=== PATIENT | female | born 1935 | race Caucasian/White ===

== ENCOUNTER → 2016-12-02 | Outpatient (CLI) | payer OTHER ==
[~2016-12-02] MED LIST: ACID CONTROLLER10 MG PO; ADULT LOW DOSE81 MG PO; ALIGN4 MG PO; ASPIRIN EC81 M1; B-100 COMPLEX1 EAC1 PO; CALCITRATE200 MG; CALCIUM CITRAT1 EA16 PO; CARVEDILOL12.5 MG PO; CITRACAL-VIT D1 EACH PO; CO Q-10100 MG PO; COENZYME Q1050 M1 PO; COMBIVENT INH; COQ-10100 MG; DIGESTIVE HEALTH PO; DUONEB 2.5-0.5 M3 ML INH; FOSAMAX 70 MG T70 MG PO; LORAZEPAM 1 MG T1 M1 PO; LORAZEPAM 2MG TA2 M1 PO; MULTI VITAMIN1 EACH PO; MULTIVITAMINS1 EAC7 PO; NEURONTIN 400400 M1 PO; NORVASC 5 MG TAB5 MG PO; OPTIVE EYE DROP30 ML OPHTHALMIC; PROAIR HFA8.5 GM INH; PROBIOTIC1 EAC1; SIMVASTATIN20 MG PO; SYMBICORT160 MCG/4. INH; SYNTHROID88 MCG PO; TIROSINT88 MCG; TRAZODONE 150150 M1; TRAZODONE PO; VITAMIN B COMP1 EACH PO; VITAMIN C + RO500 MG; VITAMINC500 PO; ZOLOFT50 MG PO
== END ==
LOC: RAD 08:49
DX: R06.02 Shortness of breath (principal); K44.9 Diaphragmatic hernia without obstruction or gangrene

== ENCOUNTER 2016-12-13 16:18 | Inpatient (IN) | payer OTHER ==
[~2016-12-13] VITALS: Ht 162.6 cm; Wt 53.5 kg
--- NOTE | ~2016-12-13 | 2DMMODE ---
[facility] [address] [place] [address] 2 D/M-MODE ECHOCARDIOGRAM Name: MALKA MARTINO Room #: 455-P ADM IN M.R.#: [id number] Admission: 12/13/16 Attend Phys: Mayra Solitario MD Discharge: Date of : 37 Date of Service: 12/14/16 1412 Report #: [id number] THIS REPORT FOR: //name// APPROVED REPORT Study performed: 12/14/2016 11:22:19 EXAM: Comprehensive 2D, Doppler, and color-flow Echocardiogram Patient Location: Bedside Room #: [facility] Status: routine Other Information Study Quality: Adequate Indications Dyspnea Hx COPD, HTN, HLP 2D Dimensions RVDd: 37.02 mm LVEF(%): 57.49 (>50%) IVSd: 15.04 (7-11mm) LVOT Diam: 20.09 (18-24mm) LVDd: 36.71 mm PWd: 13.01 (7-11mm) Ascending Ao: 32.33 (22-36mm) LVDs: 25.85 (25-40mm) Aortic Root: 33.35 mm IVC: 1.70 mm Bains's LVEF: 57.49 % Volumes Left Atrial Volume (Systole) Single Plane 4CH: 82.64 mL Single Plane 2CH: 89.13 mL LA ESV Index: 64.00 mL/m2 Aortic Valve AoV Peak Khadar.: 1.62 m/s AO Peak Gr.: 10.50 mmHg LVOT Max P.32 mmHg LVOT Max V: 1.15 m/s BUBBA Vmax: 2.25 cm2 Mitral Valve IVRT: 106.11 ms Pulmonary Valve PV Peak Khadar.: 1.12 m/s PV Peak Gr.: 5.03 mmHg [facility] [place] [address] 2 D/M-MODE ECHOCARDIOGRAM Name: MALKA MARTINOJAMIL Room #: 455- ADM IN M.R.#: [id number] Admission: 12/13/16 Attend Phys: Mayra Solitario MD Discharge: Date of : 37 Date of Service: 12/14/16 1412 Report #: [id number] Tricuspid Valve TR Peak Khadar.: 2.82 m/s RAP Estimate: 5.00 mmHg TR Peak Gr.: 31.87 mmHg PA Pressure: 37.00 mmHg Left Ventricle The left ventricle is normal size. Moderate concentric left ventricular hypertrophy. The left ventricular systolic function is normal. The left ventricular ejection fraction is within the normal range. LVEF is 55-60%. This study is not technically sufficient to allow evaluation of the LV diastolic function. Right Ventricle The right ventricle is normal size. The right ventricular systolic function is normal. Atria Left atrium is dilated. The right atrium size is normal. Aortic Valve Aortic valve is thickened but has adequate excursion. No aortic regurgitation is present. There is no aortic valvular stenosis. Mitral Valve The mitral valve is normal in structure. Trace mitral regurgitation. No evidence of mitral valve stenosis. Tricuspid Valve The tricuspid valve is normal in structure. There is trace tricuspid regurgitation. The right atrial pressure is estimated at 5 mmHg. There is mild pulmonary hypertension with an estimated PAP of 37 mmHg. Pulmonic Valve The pulmonary valve is normal in structure. There is no pulmonic valvular regurgitation. Great Vessels The aortic root is normal in size. The ascending aorta is normal in size. IVC is normal in size and collapses >50% with inspiration. Pericardium There is no pericardial effusion. [facility] [address] [place] [address] 2 D/M-MODE ECHOCARDIOGRAM Name: MALKA MARTINO Room #: 455-[facility] IN .R.#: [id number] Admission: 12/13/16 Attend Phys: Mayra Solitario MD Discharge: Date of : 37 Date of Service: 12/14/16 1412 Report #: [id number] <Conclusion> The left ventricle is normal size. LVEF is 55-60%. Left atrium is dilated. Aortic valve is thickened but has adequate excursion. No aortic regurgitation is present. There is no aortic valvular stenosis. The mitral valve is normal in structure. Trace mitral regurgitation. The tricuspid valve is normal in structure. There is trace tricuspid regurgitation. The right atrial pressure is estimated at 5 mmHg. There is mild pulmonary hypertension with an estimated PAP of 37 mmHg. The pulmonary valve is normal in structure. The aortic root is normal in size. <ELECTRONICALLY SIGNED> By: Jorge Jamison MD 12/14/16 [id number] 11 Jorge Jamison MD /INF
--- NOTE | ~2016-12-13 | S ---
[facility] [place] [address] [place] [address] SURGICAL PATH RPT PROCEDURE Name: MALKA MARTINO Room #: 455-P DIS IN M.R.#: [id number] Admission: 12/13/16 Date of : 37 Discharge: 12/17/16 Report #: [id number] Path Case #: [id number] PATHOLOGY REPORT COLLECTION DATE: 12/16/2016 RECEIVED DATE: 12/16/2016 SUBMITTING PHYS: Dr. Anibal Rodriguez OTHER PHYS: Dr. Jude Solitario SPECIMEN(S) RECEIVED: A.Bx of random colon * * * * * * * * * * * * FINAL DIAGNOSIS: Colon, random biopsies: - Colonic mucosa with mild chronic inflammation in lamina propria. - No specific evidence of lymphocytic or collagenous colitis. (SK:; 12/19/2016) PATHOLOGIST: Dickson Felix M.D. REPORT ELECTRONICALLY SIGNED BY: Dickson Felix M.D. DATE/TIME: 12/19/2016 15:40 * * * * * * * * * * * * GROSS PATHOLOGY: Received in formalin labeled "Malka Martino, biopsy of random colon," are 3 segments of wills soft tissue measuring 0.8 x 0.5 x 0.2 cm in aggregate dimensions and ranging from 0.4 to 0.5 cm in maximum dimension. The specimen is submitted entirely in cassette A1. ([facility]; 12/17/2016) CLINICAL HISTORY: Pre-op dx: Dysphasia, anemia, microscopic colitis Post-op dx: Chronic diarrhea, anemia INITIAL CPT CODE(S): A; 70288 Professional services performed by [facility] at [facility] [address], [place] [address] Technical services performed by [facility] at [address] [place] [address], [address] [address]. [facility] [address] [place] [address] SURGICAL PATH RPT PROCEDURE Name: MALKA MARTINO Room #: 455-P [facility] IN [facility].#: [id number] Admission: 12/13/16 Date of : 37 Discharge: 12/17/16 Report #: [id number] Path Case #: [id number] [facility] [address] [address] PHONE: [phone] DIRECTOR: Crescencio Rudolph M.D. * * * END OF REPORT * * *
[2016-12-13 16:55] VITALS: BP 144/68
[2016-12-13 17:41] LABS: ABSOLUTE NEUTROPHILS 9.5 thou/uL (1.4-8.2); BASOPHILS 0.8 % (0.0-2.0); EOSINOPHILS 3.9 % (0.0-3.0); HEMOGLOBIN 7.3 gm/dL (12.0-15.0); LYMPHOCYTES 17.2 % (24.0-44.0); MCH 23.8 pg (26.0-34.0); MCV 74.6 fL (80.0-100.0); MONOCYTES 10.1 % (1.0-8.0); PLATELET COUNT 366 thou/uL (150-400); RBC 3.08 mil/uL (4.20-5.00); WBC 13.9 thou/uL (4.0-11.0)
[2016-12-13 17:46] LABS: CALCIUM 9.2 mg/dL (8.5-10.1); CREATININE 0.8 mg/dL (0.6-1.0); POTASSIUM 4.4 mmol/L (3.5-5.1)
[2016-12-13 17:48] LABS: ABG SAMPLE TYPE ARTERIAL; BE(vivo) 0.8 mmol/L (-2 to +3); HCO3 24.8 mmol/L (22.0-26.0); LACTATE 0.75 mmol/L (0.5-2.0); O2(CT) 10.4 mL/dL (15.0-23.0); O2Hb 92.7 % (92.0-98.0); PCO2 36.8 mmHg (35.0-45.0); PO2 76.5 mmHg (80.0-100.0); STICK SITE L.BRACHIAL; pH 7.446 (7.360-7.450); sO2 95.9 % (92.0-98.0); tCO2 25.9 mmol/L (24.0-30.0)
[2016-12-13 17:50] LABS: MANUAL DIFF NO
[2016-12-13 17:52] LABS: TOTAL BILIRUBIN 0.2 mg/dL (<0.1-1.0); TOTAL PROTEIN 6.6 g/dL (6.4-8.2)
[2016-12-13 18:16] LABS: % SATURATION 3 % (20-39); IRON 14 ug/dL (50-170); TIBC 404 ug/dL (250-450); UIBC 390 ug/dL
[2016-12-13 19:05] VITALS: BP 147/64
[2016-12-13 20:11] LABS: FOLIC ACID 34.4 ng/mL (8.6-58.9)
[2016-12-14 04:28] VITALS: BP 121/55
[2016-12-14 06:11] LABS: WBC 9.9 thou/uL (4.0-11.0)
[2016-12-14 06:13] LABS: HEMATOCRIT 21.3 % (37.0-47.0); MCH 24.3 pg (26.0-34.0); MCHC 32.8 g/dL (28.0-37.0); MCV 74.1 fL (80.0-100.0); RBC 2.87 mil/uL (4.20-5.00); RDW 17.2 % (10.5-14.5)
[2016-12-14 06:23] LABS: CALCIUM 8.5 mg/dL (8.5-10.1); CREATININE 0.8 mg/dL (0.6-1.0); POTASSIUM 4.2 mmol/L (3.5-5.1)
[2016-12-14 07:57] VITALS: BP 139/71
[2016-12-14 11:05] VITALS: BP 128/49
[2016-12-14 15:29] VITALS: BP 140/68
[2016-12-14 16:00] LABS: URINE BILIRUBIN NEGATIVE (Negative); URINE BLOOD 1+ (Negative); URINE COLOR YELLOW; URINE GLUCOSE-RANDOM* NEGATIVE (Negative); URINE KETONES NEGATIVE (Negative); URINE NITRITE POSITIVE (Negative); URINE PROTEIN (DIPSTICK) NEGATIVE (Negative); URINE SPECIFIC GRAVITY <= 1.005 (1.003-1.035); URINE UROBILINOGEN 0.2 E.U./dl (0.2-1.0)
[2016-12-14 16:08] LABS: BACTERIA >30 Many /HPF (None Seen); CASTS None Seen /LPF (None Seen); CRYSTALS None Seen /LPF (None Seen); SQUAMOUS 0-3 Few /LPF (0-3); URINE RBC 3-10 Few /HPF (0-2); URINE WBC >25 Many /HPF (0-5)
[2016-12-14 19:31] VITALS: BP 145/70
[2016-12-14 22:00] VITALS: BP 141/82; BP 90/42
[2016-12-15] VITALS (9 sets, daily range): BP systolic 90–168; BP diastolic 42–72
[2016-12-15 06:01] LABS: HEMATOCRIT 30.3 % (37.0-47.0); MCH 25.8 pg (26.0-34.0); MCHC 33.3 g/dL (28.0-37.0); MCV 77.3 fL (80.0-100.0); PLATELET COUNT 339 thou/uL (150-400); RBC 3.91 mil/uL (4.20-5.00); RDW 17.6 % (10.5-14.5); WBC 15.1 thou/uL (4.0-11.0)
[2016-12-15 06:20] LABS: CALCIUM 8.8 mg/dL (8.5-10.1); CREATININE 0.8 mg/dL (0.6-1.0)
[2016-12-15 06:30] LABS: HEMOGLOBIN 10.1 gm/dL (12.0-15.0); MANUAL DIFF YES
[2016-12-15 08:28] LABS: ABSOLUTE NEUTROPHILS 13.3 thou/uL (1.4-8.2); METAMYELOCYTES 1 %; TOTAL CELL COUNT 100
[2016-12-15 08:29] LABS: ANISOCYTOSIS 1+; OVALOCYTES 1+
[2016-12-15 08:30] LABS: HYPOCHROMASIA 1+; MICROCYTES 2+; POLYCHROMASIA OCCASIONAL
[2016-12-16 04:07] LABS: GLYCOHEMOGLOBIN (HGB A1C) 5.7 % (4.8-5.6)
[2016-12-16 05:17] VITALS: BP 158/74
[2016-12-16 06:04] LABS: HEMATOCRIT 29.5 % (37.0-47.0); HEMOGLOBIN 9.7 gm/dL (12.0-15.0); MCH 25.5 pg (26.0-34.0); MCV 77.5 fL (80.0-100.0); RBC 3.8 mil/uL (4.20-5.00); RDW 17.8 % (10.5-14.5)
[2016-12-16 06:25] LABS: CALCIUM 8.4 mg/dL (8.5-10.1); CREATININE 0.7 mg/dL (0.6-1.0); POTASSIUM 3.4 mmol/L (3.5-5.1)
[2016-12-16 07:26] VITALS: BP 151/79
[2016-12-16 12:00] VITALS: BP 149/69
[2016-12-16 16:00] VITALS: BP 150/73
[2016-12-16 19:37] VITALS: BP 143/79
[2016-12-17 04:20] VITALS: BP 149/71
[2016-12-17 07:29] VITALS: BP 121/74
[2016-12-17] MEDS ORDERED: DUONEB 2.5-0.5 M3 ML INH (10:43)
[2016-12-17] MEDS ORDERED: CIPRO250 M1 PO (10:46)
[2016-12-17] MEDS ORDERED: PREDNISONE 10 M10 MG PO (10:48)
[2016-12-17] MEDS ORDERED: IRON325 PO (10:57)
[2016-12-17 11:29] VITALS: BP 146/49
== END 2016-12-17 12:14 | disposition home health service (06) | DRG 191 ==
LOC: 4W 16:18
PROVIDERS: Family Medicine; Internal Medicine Pulmonary Disease; Nurse Practitioner; Nurse Practitioner Acute Care; Nurse Practitioner Adult Health
PROC: 30233N1 Transfusion of Nonautologous Red Blood Cells into Peripheral Vein, Percutaneous Approach (ICD-10-PCS; principal; 2016-12-14)
PROC: 0DJ08ZZ Inspection of Upper Intestinal Tract, Via Natural or Artificial Opening Endoscopic (ICD-10-PCS; 2016-12-16)
PROC: 0DBE8ZX Excision of Large Intestine, Via Natural or Artificial Opening Endoscopic, Diagnostic (ICD-10-PCS; 2016-12-16)
DX: J44.1 Chronic obstructive pulmonary disease with (acute) exacerbation (principal); N39.0 Urinary tract infection, site not specified; D62 Acute posthemorrhagic anemia; E44.1 Mild protein-calorie malnutrition; K52.832 Lymphocytic colitis; D50.9 Iron deficiency anemia, unspecified; I25.10 Atherosclerotic heart disease of native coronary artery without angina pectoris; F32.9 Major depressive disorder, single episode, unspecified; M19.90 Unspecified osteoarthritis, unspecified site; E03.9 Hypothyroidism, unspecified; G47.00 Insomnia, unspecified; I73.9 Peripheral vascular disease, unspecified; R00.0 Tachycardia, unspecified; R13.10 Dysphagia, unspecified; K22.2 Esophageal obstruction; K44.9 Diaphragmatic hernia without obstruction or gangrene; D63.8 Anemia in other chronic diseases classified elsewhere; E78.5 Hyperlipidemia, unspecified; R73.9 Hyperglycemia, unspecified; F41.9 Anxiety disorder, unspecified; G89.29 Other chronic pain; M54.5 Low back pain; Z88.6 Allergy status to analgesic agent; Z88.0 Allergy status to penicillin; Z82.49 Family history of ischemic heart disease and other diseases of the circulatory system; Z87.891 Personal history of nicotine dependence; Z79.82 Long term (current) use of aspirin; Z79.899 Other long term (current) drug therapy; Z80.9 Family history of malignant neoplasm, unspecified; Z80.59 Family history of malignant neoplasm of other urinary tract organ
CPT/HCPCS: 10047; 62110; 62900; 70005